=== PATIENT | female | born 1990 | race Caucasian/White ===

== ENCOUNTER 2017-07-09 13:01 | Emergency (ER) | payer MEDICAID ==
[2017-07-09] MEDS ORDERED: Morphine 4 MG/ML Syringe IM ONE (13:28)
--- NOTE | 2017-07-09 13:32 | EDM.PDOC ---
ED HPI GENERAL MEDICAL PROBLEM - General Chief Complaint: General Stated Complaint: TOOTHACHE Time Seen by Provider: 07/09/17 13:28 Source of Information: Reports: Patient History Limitations: Reports: No Limitations - History of Present Illness INITIAL COMMENTS - FREE TEXT/NARRATIVE: c/o tooth pain not seen a dentist in several yrs, from [place], moved here recently, has changed insurance, does not have a dentist has inc'd pain in tooth #17 x 3d, APAP and ibuprofen not helping has had one wisdom tooth removed, has been trying to have the others removed for past 6y - Related Data Allergies Allergy/AdvReac Type Severity Reaction Status Date / Time feathers Allergy Hives Verified 07/09/17 13:24 Home Meds: Home Meds Amoxicillin 500 mg PO TID #21 tab 07/09/17 [Rx] Hydrocodone/Acetaminophen [[place] 5-325] 1 tab PO Q6H PRN #6 tablet 07/09/17 [Rx] Lidocaine 2% [Xylocaine 2% Viscous] 15 ml PO ASDIRECTED #1 cup 07/09/17 [Rx] ED ROS GENERAL - Review of Systems Review Of Systems: See Below Constitutional: Reports: No Symptoms HEENT: Reports: Dental Pain Respiratory: Reports: No Symptoms Cardiovascular: Reports: No Symptoms Endocrine: Reports: No Symptoms GI/Abdominal: Reports: No Symptoms : Reports: No Symptoms Musculoskeletal: Reports: No Symptoms Skin: Reports: No Symptoms Neurological: Reports: No Symptoms Psychiatric: Reports: No Symptoms Hematologic/Lymphatic: Reports: No Symptoms Immunologic: Reports: No Symptoms ED EXAM, GENERAL - Physical Exam Exam: See Below Exam Limited By: No Limitations General Appearance: Alert, WD/WN, Mild Distress Throat/Mouth: Other (has mild swell L cheek centered over maxilla, no true submandibular LNs appreciated, tooth #19 is covered 60% with gingiva that appears mildly swollen with no red, #19 is very tender, no obvious caries altho pt unable to open mouth fully, multiple filled caries elsewhere) Course - Orders/Labs/Meds Meds: Medications Discontinued Medications Generic Name Dose Route Start Last Admin Trade Name Freq PRN Reason Stop Dose Admin Morphine Sulfate 4 mg 07/09/17 13:28 Morphine IM 07/09/17 13:29 ONETIME ONE Departure - Departure Time of Disposition: 13:41 Disposition: Home, Self-Care 01 Condition: Good Clinical Impression: Pain, dental, Gingivitis - Discharge Information Prescriptions: Amoxicillin 500 mg PO TID #21 tab Hydrocodone/Acetaminophen [[place] 5-325] 1 tab PO Q6H PRN #6 tablet PRN Reason: Pain Lidocaine 2% [Xylocaine 2% Viscous] 15 ml PO ASDIRECTED #1 cup Referrals: PCP,None [Primary Care Provider] - Forms: ED Department Discharge Additional Instructions: For pain, take ibuprofen 200 mg 3 tabs 4 times a day with max of 12 tabs in 24 hours. For pain, take acetaminophen 325 mg 2 tabs 4 times a day with a max of 8 tabs in 24 hours. For pain, take hydrocodone with acetaminophen 5/325 mg 1 tab every 6 hours as needed. No alcohol. For pain, put a small amount of viscous lidocaine on a cotton ball and place on inflamed gum every hour as needed. For infection, take amoxicillin 500 mg 1 tab 3 times a day for 7 days. See a dentist in the next several days. Call your Physician or Return to Emergency Department if: * Your condition worsens in any way. * You develop fever greater than 100.4. * You have vomitting that does not stop with medications. * You have pain that is not controlled with medications.
== END 2017-07-09 14:23 | disposition home or self-care (01) ==
LOC: FB.ED 13:01
DX: K05.10 Chronic gingivitis, plaque induced (principal); Z91.048 Other nonmedicinal substance allergy status
CPT/HCPCS: 96372; 99282; J2270

== ENCOUNTER 2017-12-15 21:33 | Emergency (ER) | payer MEDICAID ==
[2017-12-15] MEDS ORDERED: Acetaminophen/HYDROcodone 325-5 MG Tab PO ONE (22:10)
--- NOTE | 2017-12-16 09:21 | ER ---
DATE SEEN: 12/15/2017 TIME SEEN: The patient was seen at 2145 hours. HISTORY OF PRESENT ILLNESS: This 27-year-old woman comes in with a history of 4 days' duration of left 15th tooth pain. She has moved from [facility] and now lives in [place], has not been able to see a dentist. She is having a dental problem for some time with a fracture of her tooth. MEDICATIONS: The patient has been taking ibuprofen 600 mg alternating with Tylenol 1000 mg every 6 hours. She is not taking them together. ALLERGIES: She is not allergic to any medicines, but she is allergic to feathers. PAST MEDICAL HISTORY: Noncontributory. REVIEW OF SYSTEMS: Negative. PHYSICAL EXAMINATION: VITAL SIGNS: Blood pressure 106/61, heart rate 82, temperature is 97.6, and oxygen saturation 99%. GENERAL: The patient is in marked distress. She has a bubbly daughter, who is very active and is attended by the patient's mother (her daughter's grandmother). HEENT: She has mild swelling in the buccal space on the right side. She does not want me to touch her face or open her mouth or use a tongue blade. She raised her hands and says, "I get lightheaded and feel I am going to faint," and we discussed injecting the tooth, but she could not do that because she would faint, ( injection of inferior and superior alveolar nerve blocks). On inspection, tooth #15 has a posterior mesial crown fracture. It has a filling in anterior portion of the 15th tooth. The patient has quite good looking teeth otherwise. There is no evidence of emersion of her wisdom teeth. She notes she has pain with the wisdom teeth. She is reluctant to have me touch her face (she has a 'touch me not' response - allodynia). She has mild cervical adenopathy. LUNGS: Clear. HEART: Without murmur. ABDOMEN: No hepatosplenomegaly. DERMIS: Negative. ASSESSMENT: 1. Right fifth tooth fracture with dental pain. 2. Moderately good dental hygiene. 3. Periapical abscess in left 15th tooth. 4. Mild buccal space inflammation. I am unable to palpate or even get close examination intraorally with a tongue blade because of her anxiety about any form that it might hurt. Consequently, most of this diagnosis is made on the basis of observation, and her buccal space is slightly inflamed on the right side. DIAGNOSES: 1. Tooth #15 fracture with dental pain, pulpitis, and periapical abscess. 2. Right buccal space inflammation. 3. Marked pain in the mandible and maxillary wisdom teeth, as they have not emerged. DISCHARGE PLAN: Marked pain perhaps is secondary to poor spacing in the teeth and pressure on the other teeth. The patient is to follow up with dentist. If she does not to have a dentist to see, (she claims she goes to [facility]), I have advised her to go to [facility] to her previous dentist. If this is not available, then she should go to [facility] as soon as she can. The patient was dismissed with a prescription for Amoxil 500 mg t.i.d., 30 capsules; Vicodin 5/325, 8 tablets, 1 q.4 hours to 6 hours p.r.n. pain; and to use Tylenol 1000 mg and ibuprofen 600 mg together every 6 hours for pain. Vicodin is to be used for breakthrough pain. /[id number] OLVIN/NORM ESCOBAR
== END 2017-12-15 22:25 | disposition home or self-care (01) ==
LOC: FB.ED 21:33
DX: K04.7 Periapical abscess without sinus (principal); K03.81 Cracked tooth
CPT/HCPCS: 99282; A9270-GY

== ENCOUNTER 2019-08-11 17:41 | Emergency (ER) | payer SELFPAY ==
[2019-08-11] MEDS ORDERED: Ketorolac 60 MG/2 ML SDV IM ONE (19:06)
[2019-08-11] MEDS ORDERED: cefTRIAXone 1 GM Vial IM ONE (19:06)
[2019-08-11] MEDS ORDERED: predniSONE 10 MG Tab PO STA (19:07)
--- NOTE | 2019-08-11 19:13 | EDM.PDOC ---
ED HPI GENERAL MEDICAL PROBLEM - General Chief Complaint: ENT Problem Stated Complaint: SORE THROAT Time Seen by Provider: 08/11/19 17:50 Source of Information: Reports: Patient History Limitations: Reports: No Limitations - History of Present Illness INITIAL COMMENTS - FREE TEXT/NARRATIVE: sore throat , pain with swallowing for 3 days. pain with swallowing , not able to eat and drink Onset: Gradual Onset Date: 08/08/19 Duration: Day(s): (3), Getting Worse Location: Reports: Neck Quality: Reports: Ache, Dull Severity: Severe Worsens with: Reports: Movement Associated Symptoms: Reports: Fever/Chills, Headaches, Malaise - Related Data Allergies Allergy/AdvReac Type Severity Reaction Status Date / Time feathers Allergy Hives Verified 12/15/17 21:43 Home Meds: Home Meds Amoxicillin 500 mg PO TID #30 tab 12/15/17 [Rx] Ketorolac [Toradol] 10 mg PO Q6H PRN #10 tab 08/11/19 [Rx] Penicillin V Potassium 500 mg PO Q8HR #30 tab 08/11/19 [Rx] Past Medical History Respiratory History: Reports: Other (See Below) Other Respiratory History: Pt reports Hx of respiratory infections Gastrointestinal History: Reports: Gastritis Genitourinary History: Reports: None 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: Musculoskeletal History: Reports: Other (See Below) Other Musculoskeletal History: scoliosis - Past Surgical History Respiratory Surgical History: Reports: None Female Surgical History: Reports: Section Social & Family History - Family History Family Medical History: Noncontributory - Caffeine Use Caffeine Use: Reports: Coffee ED ROS ENT - Review of Systems Review Of Systems: See Below Constitutional: Reports: Fever, Chills, Malaise, Weakness HEENT: Reports: Throat Pain, Throat Swelling Respiratory: Reports: No Symptoms Cardiovascular: Reports: No Symptoms Endocrine: Reports: No Symptoms Musculoskeletal: Reports: No Symptoms Skin: Reports: No Symptoms Neurological: Reports: No Symptoms ED EXAM, ENT - Physical Exam Exam: See Below Exam Limited By: No Limitations General Appearance: Alert, WD/WN, No Apparent Distress Eye Exam: Bilateral Eye: EOMI Ears: Normal External Exam Nose: Normal Inspection Mouth/Throat: Hoarse Voice, Muffled Voice, Pharyngeal Erythema, Throat Pain, Throat Swelling, Tonsillar Exudates, Tonsillar Swelling Head: Atraumatic Neck: Supple, Lymphadenopathy (R), Lymphadenopathy (L), Tender Lateral Respiratory/Chest: Lungs Clear, Normal Breath Sounds Cardiovascular: Regular Rate, Rhythm GI/Abdominal: Soft, Non-Tender Neurological: Alert, Oriented, CN II-XII Intact Psychiatric: Normal Affect Course - Orders/Labs/Meds Orders: Active Orders 24 hr Category Date Time Status Ketorolac [Toradol] Med 08/11/19 19:06 Once 60 mg IM ONETIME ONE cefTRIAXone [Rocephin] Med 08/11/19 19:06 Once 1 gm IM ONETIME ONE predniSONE Med 08/11/19 19:07 Stat 40 mg PO NOW STA - Re-Assessments/Exams Free Text/Narrative Re-Assessment/Exam: 08/11/19 19:12Rapid strep don e: positive , pt given toradol , rocephin and prednisone , will send home penicillin Departure - Departure Time of Disposition: 19:30 Disposition: Home, Self-Care 01 Condition: Fair Clinical Impression: Pharyngitis, Streptococcal pharyngitis - Discharge Information *PRESCRIPTION DRUG MONITORING PROGRAM REVIEWED*: Not Applicable *COPY OF PRESCRIPTION DRUG MONITORING REPORT IN PATIENT VALERIA: Not Applicable Instructions: Strep Throat, [id number] Referrals: PCP,None [Primary Care Provider] - - My Orders Last 24 Hours: My Active Orders 08/11/19 19:06 Ketorolac [Toradol] 60 mg IM ONETIME ONE cefTRIAXone [Rocephin] 1 gm IM ONETIME ONE 08/11/19 19:07 predniSONE 40 mg PO NOW STA - Assessment/Plan Last 24 Hours: My Active Orders 08/11/19 19:06 Ketorolac [Toradol] 60 mg IM ONETIME ONE cefTRIAXone [Rocephin] 1 gm IM ONETIME ONE 08/11/19 19:07 predniSONE 40 mg PO NOW STA
[2019-08-11] MEDS ORDERED: predniSONE 20 MG Tab PO ONE (19:15)
[2019-08-11] MEDS ORDERED: predniSONE 20 MG Tab ONE (19:22)
== END 2019-08-11 19:55 | disposition home or self-care (01) ==
LOC: FB.ED 17:41
DX: J02.0 Streptococcal pharyngitis (principal); Z91.048 Other nonmedicinal substance allergy status
CPT/HCPCS: 87880; 96372; 99284; A9270; J0696; J1885